=== PATIENT | female | born 1980 | race Caucasian/White ===

== ENCOUNTER 2016-09-03 06:35 | Inpatient (IN) | payer OTHER ==
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
[2016-09-03 08:08] VITALS: BMI 31.6
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
[2016-09-03] MEDS ORDERED: Lactated Ringer's 1,000 ML IV SCH ×3 (08:30→11:30)
[2016-09-03 09:42] LABS: BASO # 0.1 K/uL (0.0-0.2); BASO % 0.6 % (0.0-2.0); EOS # 0.2 K/uL (0.0-0.7); EOS % 1.8 % (0.0-4.0); HEMATOCRIT 34.1 % (34.0-47.0); LYMPH # 1.5 K/uL (1.0-4.3); LYMPH % 14.5 % (20.0-40.0); MEAN CELL VOLUME 80.6 fl (81.0-99.0); MEAN CORPUSCULAR HEMOGLOBIN 26.9 pg (27.0-31.0); MEAN CORPUSCULAR HGB CONC 33.3 g/dL (33.0-37.0); MEAN PLATELET VOLUME 8.4 fl (7.2-11.7); MONO # 0.6 K/uL (0.0-0.8); MONO % 6.3 % (0.0-10.0); NEUT # 7.9 K/uL (1.8-7.0); NEUT % 76.8 % (50.0-75.0); RED CELL DISTRIBUTION WIDTH 17.9 % (11.5-14.5); WHITE BLOOD COUNT 10.3 K/uL (4.8-10.8)
[2016-09-03 09:49] VITALS: BP 113/77; PULSE 72; RESP 18; TEMP 97.6; O2SAT 98
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
[2016-09-03] MEDS ORDERED: Oxytocin 30 units/LR 500ML 500 ML IV SCH (10:00)
[2016-09-03] MEDS ORDERED: Fentanyl/Bupivacaine HCl 250 ML EPI ONE (10:30)
--- NOTE | 2016-09-03 11:54 | OBPN ---
Datetime: 09/03/2016 11:45 IP Progress Plan Other: HOLD PITOCIN IP Progress Impression: Normal progression of labor IP Informed Consent Obtain: Vaginal Delivery; Risks, Benefits and Alternatives Discussed IP Procedures: Intrauterine Pressure Catheter; Amnio Infusion IP Progress Plan: Continue present management Datetime: 09/03/2016 11:30 Pool Provider: Positive Membranes, Provider: Ruptured FHR - Baseline A Provider: 120 Presentation-Admit: Vertex IP Progress Note Comment: She rec'd epidural and felt better. SHe is able to tolerate exam. A: early labor P: AROM augmentation...PItocin at 4miu/h NICHD Accel Fetus A IP Provider: 15X15 FHR Category Provider Fetus A: Category I NICHD Variability Prov Fetus A: Marked >25bpm Dilatation, Provider: 3-4 Effacement, Provider: 75 Station, Provider: -1 NICHD Decel Fetus A IP Provider: None
--- NOTE | 2016-09-03 11:59 | OBPN ---
Datetime: 09/03/2016 11:45 Contraction Comments Provider: 1-2m IP Fetus A Comments: Recovery noted Presentation-Admit: Vertex IP Progress Note Comment: Notiifed of deceleratoin at 11:38am...Pitocin was shut off and noted by nu rse to be 7cm... 2 decelerations noted...pitocin off. Will amnioinfuse NS 500cc over 1h and then 125cc/h. COndit ion disucssed with pt. Her questions answered. SHe is also on O2 and left lateral position Dilatation, Provider: 6-7 Effacement, Provider: 100 Station, Provider: 0 NICHD Decel Fetus A IP Provider: Variable
[2016-09-03] MEDS ORDERED: Sodium Chloride 0.9% 1,000 ML IV SCH (12:00)
[2016-09-03] MEDS ORDERED: Lidocaine 1% Inj (20ml) ONE (12:10)
[2016-09-03] MEDS ORDERED: Lidocaine 2% PF (10 ml) Amp ONE (14:22)
[2016-09-03] MEDS ORDERED: Oxytocin 30 units/LR 500ML 500 ML IV ONE (14:26)
[2016-09-03] MEDS ORDERED: Oxycodone/Acetaminophen 5/325 mg Tab PO PRN ×2 (14:44→18:11)
[2016-09-03] MEDS ORDERED: Benzocaine/Menthol SPRAY TOP PRN (14:46)
--- NOTE | 2016-09-03 15:08 | OBDS ---
DELIVERY PERSONNEL Delivery Doctor: Gelacio Vogt DO Bit Bender: Cierra MULLINS/ Luis MULLINS Anesthesiologist: Dr. Huff MATERNAL INFORMATION Delivery Anesthesia: Epidural Medications in Delivery: Pitocin Estimated Blood Loss (ml): 200 Placenta Cultured: No Maternal Complications: None Provider Comments: She was fully dilated at 13:00pm. At 14:00pm, no change in statoin. Pitocin sta rted at 2miu/h and left at that dose. IUPC/amnioinfusoin was left in place when she was fully dilate d. Over intact perineum, of live male infant. Two loose nuchal cords noted and reduced. IUPC r emoved. 9,9. Skin to skin was done with mother. Perineal laceratoin was repaired as above. She remianed stable. EBL 200cc LABOR SUMMARY EDC: 09/07/2016 00:00 No. Babies in Womb: 1 Attempted: No Labor Anesthesia: Epidural LABOR INFORMATION Reason for Induction: Not Applicable Onset of Labor: 09/03/2016 10:40 Complete Dilatation: 09/03/2016 12:45 Oxytocin: Augmentation Group B Beta Strep: Negative Antibiotics # of Doses: N/A Antibiotics Time of Last Dose: N/A Steroids Given: None Reason Steroids Not Administered: Not Applicable Other Reason Not Administered: N/A MEMBRANES Membranes Rupture Method: Artificial Rupture of Membranes: 09/03/2016 11:30 Length of Rupture (hrs): 2.72 Amniotic Fluid Color: Clear Amniotic Fluid Amount: Small Amniotic Fluid Odor: Normal STAGES OF LABOR Stage 1 hrs: 2 Stage 1 min: 5 Stage 2 hrs: 1 Stage 2 min: 28 VAGINAL DELIVERY Episiotomy: None Laceration Extension: Second Degree Laceration Type: Perineal Laceration Repair: Yes Laceration Repair Note: 1% Lidocaine 5cc was infiltrated (5cc) to perineum. Perineal laceration was reparied with 2.0 Vicryl Rapide suture. Interuptted suture x 2 to posterior superfical part of lace ratoin. Initial Vag Sponge Count: 10 Final Vag Sponge Count: 10 Initial Vag Sharps Count: 3 Final Vag Sharps Count: 3 Sponge Count Correct: Yes Sharps Count Correct: Yes Count Comment: Laps 10 Sharps 3 One syringe BABY A INFORMATION Delivery Date/Time: 09/03/2016 14:13 (Annotations: Data stored by [facility] on behalf of user) SHOULDER DYSTOCIA BABY A Infant Delivery Date/Time: 09/03/2016 14:13 (Annotations: Data stored by [facility] on behalf of user)
[2016-09-03] MEDS: Benzocaine/Menthol SPRAY TOP PRN (18:42)
[2016-09-04 07:20] LABS: BASO # 0.1 K/uL (0.0-0.2); BASO % 0.6 % (0.0-2.0); EOS # 0.3 K/uL (0.0-0.7); EOS % 2.1 % (0.0-4.0); HEMATOCRIT 32.1 % (34.0-47.0); LYMPH # 1.7 K/uL (1.0-4.3); LYMPH % 13.5 % (20.0-40.0); MEAN CELL VOLUME 80.8 fl (81.0-99.0); MEAN CORPUSCULAR HEMOGLOBIN 26.6 pg (27.0-31.0); MEAN CORPUSCULAR HGB CONC 32.9 g/dL (33.0-37.0); MEAN PLATELET VOLUME 8.1 fl (7.2-11.7); MONO # 0.8 K/uL (0.0-0.8); MONO % 6.2 % (0.0-10.0); NEUT # 9.9 K/uL (1.8-7.0); NEUT % 77.6 % (50.0-75.0); RED CELL DISTRIBUTION WIDTH 17.6 % (11.5-14.5); WHITE BLOOD COUNT 12.8 K/uL (4.8-10.8)
[2016-09-04] MEDS: Multivitamin With Minerals Tab PO SCH (08:52)
--- NOTE | 2016-09-04 08:58 | OBPPN ---
Datetime: 09/04/2016 08:54 PP Pain Prov: Within normal limits PP Nausea Prov: Denies PP Flatus Prov: No PP BM Prov: No PP Breasts Prov: Normal PP Heart Prov: Normal PP Lungs Prov: Normal PP Abdomen/Uterus Prov: Normal PP Lochia Prov: Normal PP Vulva/Perineum Prov: Normal PP CVA Tenderness Prov: Normal PP Extremities Prov: Normal PP Progress Prov: Normal PP Impression Prov: Normal progression PP Plan Prov: Continue present management PP Progress Note Prov: stable ppd1 no complaints today continue present care IP PP Procedures: None Vital Signs Provider PP: Reviewed; Within Normal Limits
[2016-09-04] MEDS ORDERED: Multivitamin With Minerals Tab PO SCH (09:00)
--- NOTE | 2016-09-04 09:01 | OBADHP ---
Datetime: 09/03/2016 11:45 Admit Comment, IP Provider: term uneventful care in labor for delivery Pelvic Type - PN: Adequate Extremities - PN: Normal Abdomen - PN: Normal Back - PN: Normal Breast - PN: Normal Lungs - PN: Normal Heart - PN: Normal Thyroid - PN: Normal Neurologic - PN: Normal HEENT - PN: Normal General - PN: Normal Presentation-Admit: Vertex IP Fetus A Comments: Recovery noted FHR - Baseline A Provider: 140 Membranes, Provider: Intact Contraction Comments Provider: 1-2m Gestation - Est Wks by US: 39.0 IP Chief Complaint: Uterine contractions NICHD Accel Fetus A IP Provider: 10X10 FHR Category Provider Fetus A: Category I NICHD Decel Fetus A IP Provider: None; Variable Dilatation, Provider: 6-7 Effacement, Provider: 100 Station, Provider: 0 Genitourinary Exam: Normal DTRs - PN: Normal EGA AdmitDate IP: 39.3 IP Adm Impression: Term, intrauterine ; Active labor IP Admit Plan: Admit to unit; Initiate labor augmentation protocol Datetime: 09/03/2016 11:30 Pool Provider: Positive NICHD Variability Prov Fetus A: Marked >25bpm
[2016-09-05] MEDS: Multivitamin With Minerals Tab PO SCH (08:40)
[2016-09-05] MEDS: Benzocaine/Menthol SPRAY TOP PRN (08:40)
--- NOTE | 2016-09-05 09:10 | OBDCSUM ---
Datetime: 09/05/2016 09:08 Discharged to, Provider: Home Follow up at, Provider: Disch Instr Activity: Normal activity; May be up to bathroom; May be up for meals; May Shower Disch Instr Diet: Regular Discharge Instructions, Provider: Routine instructions given Discharge Diagnosis, Provider: Term Delivered Discharge Time: 09/05/2016 09:08 Follow up in weeks, Provider: 5-6 weeks Disch Referrals: None Disch Activity Restrictions: No exercising; No lifting; No driving; Minimize walking; Minimize stair -climbing; No sexual activity; Nothing in vagina - [place], tampons, douche Contraception after Delivery: Undecided
--- NOTE | 2016-09-05 09:10 | OBPPN ---
Datetime: 09/05/2016 09:06 PP Pain Prov: Within normal limits PP Nausea Prov: Denies PP Flatus Prov: Yes PP BM Prov: Yes PP Breasts Prov: Normal PP Heart Prov: Normal PP Lungs Prov: Normal PP Abdomen/Uterus Prov: Normal PP Lochia Prov: Normal PP Vulva/Perineum Prov: Normal PP CVA Tenderness Prov: Normal PP Extremities Prov: Normal PP Progress Prov: Normal PP Impression Prov: Normal progression PP Plan Prov: Continue present management PP Progress Note Prov: stable ppd2 no complaints dc home today IP PP Procedures: None Vital Signs Provider PP: Reviewed; Within Normal Limits
== END 2016-09-05 16:08 | disposition home or self-care (01) | DRG 775 ==
LOC: H.EROB2 06:35 → H.L&D 08:14 → H.OB/GYN 17:30
PROVIDERS: ADMIT Specialist; ATTEND Specialist
PROC: 0KQM0ZZ Repair Perineum Muscle, Open Approach (ICD-10-PCS; principal; 2016-09-03)
PROC: 10E0XZZ Delivery of Products of Conception, External Approach (ICD-10-PCS; 2016-09-03)
PROC: 4A1HXCZ Monitoring of Products of Conception, Cardiac Rate, External Approach (ICD-10-PCS; 2016-09-03)
DX: O70.1 Second degree perineal laceration during delivery (principal); Z37.0 Single live birth; O69.81X0 Labor and delivery complicated by cord around neck, without compression, not applicable or unspecified; Z3A.39 39 weeks gestation of pregnancy